=== PATIENT | male | born 1960 | race Caucasian/White ===

== ENCOUNTER 2024-08-18 22:43 | Emergency (ER) | payer BC, MEDICARE ==
[~2024-08-18] VITALS: Ht 188 cm; Wt 89.4 kg
[2024-08-18] MEDS ORDERED: RIVA15TA PO (22:54)
[2024-08-18] MEDS ORDERED: tirzepatide (22:58)
[2024-08-19 00:10] LABS: BASOPHILS # (AUTO) 0.1 K/UL (0.0-0.2); BASOPHILS % (AUTO) 0.9 % (0.0-2.0); EOSINOPHILS # (AUTO) 0.1 K/uL (0.0-0.7); EOSINOPHILS % (AUTO) 1.4 % (0.0-7.0); HEMATOCRIT 50.9 % (36.7-47.1); HEMOGLOBIN 17.3 g/dL (12.5-16.3); LYMPHOCYTES # (AUTO) 1.2 K/uL (0.8-4.8); LYMPHOCYTES % (AUTO) 19.4 % (20.5-51.5); MEAN CORPUSCULAR HEMOGLOBIN 32.2 uug (23.8-33.4); MEAN CORPUSCULAR HGB CONC 34 g/dL (32.5-36.3); MONOCYTES # (AUTO) 0.6 K/uL (0.1-1.30); MONOCYTES % (AUTO) 9.9 % (0.0-11.0); NEUTROPHILS # (AUTO) 4.3 K/uL (1.8-8.9); NEUTROPHILS % (AUTO) 68.4 % (38.5-71.5); PLATELET COUNT (AUTO) 334 K/uL (152-348); RED BLOOD CELL COUNT(AUTO) 5.36 MIL/uL (4.06-5.63); RED CELL DISTRIBUTION WIDTH 14.6 % (12.1-16.2); WHITE BLOOD COUNT (AUTO) 6.2 K/uL (3.6-10.2)
[2024-08-19 00:13] LABS: DIFFERENTIAL COMMENT 1
[2024-08-19 00:20] LABS: CALCIUM 10.2 mg/dL (8.5-10.1); CARBON DIOXIDE 33 mmol/L (21-32); CHLORIDE 102 mmol/L (98-107); CREATININE 1.3 mg/dL (0.6-1.3); GLUCOSE 87 mg/dL (74-106); POTASSIUM 4.7 mmol/L (3.5-5.1); SODIUM SERUM 143 mmol/L (136-145); UREA NITROGEN, BLOOD 19 mg/dL (7-18)
[2024-08-19 00:28] LABS: ALANINE AMINOTRANSFERASE 222 U/L (16-63); ALKALINE PHOSPHATASE 250 U/L (50-136); ASPARTATE AMINOTRANSFERASE 208 U/L (15-37); BILIRUBIN,DIRECT 1.1 mg/dL (0.0-0.2); BILIRUBIN,TOTAL 1.7 mg/dL (0.2-1.0); TOTAL PROTEIN, SERUM 7.9 g/dL (6.4-8.2)
[2024-08-19 00:29] LABS: LIPASE > 375 U/L (16-77)
[2024-08-19] MEDS: IV NS 1000 ML 1,000 ML IV PRN (00:45)
[2024-08-19] MEDS ORDERED: SWABABLE VALVE TRANSFER SET EA MC ONE (01:11)
[2024-08-19] MEDS ORDERED: IOHEXOL 300MG/ML 100 ML INFUS..BTL ONE (01:11)
[2024-08-19] MEDS ORDERED: IV NORMAL SALINE 250 ML IV ONE (01:11)
[2024-08-19] MEDS ORDERED: METO-295 PO (06:04)
[2024-08-19] MEDS ORDERED: HYDR-3980 PO (06:04)
[2024-08-19 06:22] VITALS: BP 131/73; O2SAT 98
== END 2024-08-19 06:18 | disposition home or self-care (01) ==
LOC: ER 23:07
DX: K85.90 Acute pancreatitis without necrosis or infection, unspecified (principal); K21.9 Gastro-esophageal reflux disease without esophagitis; Z79.01 Long term (current) use of anticoagulants; Z90.49 Acquired absence of other specified parts of digestive tract
CPT/HCPCS: 99285; 36415; 74177; 96360; 96361; 80076; 80048; 83690; 85025; 85730; 86140; Q9967; J7040; A4606; A4663